=== PATIENT | female | born 1975 | race Caucasian/White ===

== ENCOUNTER 2018-11-10 09:56 | Inpatient (IN) | payer MEDICARE, MEDICAID ==
[~2018-11-10] VITALS: Ht 175.3 cm; Wt 67.9 kg
--- NOTE | 2018-11-10 10:13 | NUR ---
THIS IS A 43 YO FEMALE WHO PRESENTS TO THE ER VIA AMBULANCE TRANSFER FROM [facility] C/O N/V/D WITH ETOH DETOX. PT REPORTS LAST DRINK WAS LAST NIGHT. PT CURRENTLY AO X 4. SKIN SLIGHTLY COOL TO TOUCH, DRY AND PINK. PT HAS SLIGHT TREMORS NOTED IN HANDS. PT NST ON FINISH PATCHER. RESP EVEN AND UNLABORED. PT REQUESTED WATER/ICE CHIPS. OKAY WITH CHANELL ESPOSITO TO PROVIDE PT WITH ICE CHIPS. PT CURRENTLY DENIES PAIN. PT ON CONT BP, CARDIAC AND O2 MONITORS. WILL CONT TO MONITOR PT.
[2018-11-10] MEDS ORDERED: FLUT9.9S NAS (10:20)
[2018-11-10] MEDS ORDERED: SUCR1TAB PO (10:20)
[2018-11-10] MEDS ORDERED: FLUT1DIS3 INH (10:20)
[2018-11-10] MEDS ORDERED: FLUO40CA2 PO (10:20)
[2018-11-10] MEDS ORDERED: MIRT15TA4 PO (10:20)
[2018-11-10] MEDS ORDERED: ALBU18HF INH (10:20)
[2018-11-10] MEDS ORDERED: MAGN400T7 PO (10:20)
[2018-11-10] MEDS ORDERED: THIAMINE 100MG TABLET ONE (10:25)
[2018-11-10] MEDS ORDERED: LORazepam 2 MG/ML, 1ML ONE ×2 (10:25→13:36)
[2018-11-10] MEDS ORDERED: SODIUM CHLORIDE 0.9% 1,000ML IVBOLUS ONE ×3 (10:30→12:00)
[2018-11-10] MEDS ORDERED: THIAMINE 100MG TABLET PO ONE (10:30)
[2018-11-10] MEDS ORDERED: SODIUM CHLORIDE FLUSH 10ML SYR IVF ONE (10:30)
[2018-11-10] MEDS ORDERED: PLEASE ENTER ALLERGIES MC SCH (10:30)
[2018-11-10] MEDS: LORazepam 2 MG/ML, 1ML IVPush PRN ×3 (10:34→13:40)
[2018-11-10 10:51] LABS: MEAN CORPUSCULAR HGB CONC 31.9 g/dL (32.4-35.8); MEAN CORPUSCULAR VOLUME 81.5 fL (80-100); MEAN PLATELET VOLUME 7.8 fL (7.4-10.4); PLATELET COUNT 323 x10^3/uL (130-400); RED BLOOD COUNT 4.26 x10^6/uL (3.82-5.3); RED CELL DISTRIBUTION WIDTH 22.8 % (9.6-15.2)
[2018-11-10 10:58] LABS: ALANINE AMINOTRANSFERASE 63 U/L (12-78); ALBUMIN 3.4 g/dL (3.4-5.0); ANION GAP 14 mmol/L (5-15); CALCIUM 7.1 mg/dL (8.5-10.1); CHLORIDE 107 mmol/L (98-107); CREATININE 1.02 mg/dL (0.55-1.02)
[2018-11-10 11:00] LABS: ALKALINE PHOSPHATASE 95 U/L (45-117); BILIRUBIN,TOTAL 0.7 mg/dL (0.2-1.0); TOTAL PROTEIN 6.8 g/dL (6.4-8.2)
[2018-11-10 11:03] LABS: INTERNATIONAL NORMALIZED RATIO 0.99 (0.93-1.1); PROTHROMBIN TIME 10.4 Seconds (9.6-11.5)
[2018-11-10 11:04] LABS: BAND#(MANUAL) 1.47 x10^3/uL; BANDS%(MANUAL) 9 % (0-7); LYMPH#(MANUAL) 0.65 x10^3/uL (1-3.4); LYMPHS% (MANUAL) 4 % (22-44); MD YES; MONOS#(MANUAL) 0.33 x10^3/uL (0.3-2.7); MONOS% (MANUAL) 2 % (2-9); SEG#(MANUAL) 13.86 x10^3/uL (1.8-6.8); SEGS% (MANUAL) 85 % (42-75)
[2018-11-10 11:05] LABS: ANISOCYTOSIS 1+
[2018-11-10 11:06] LABS: <PLATELET ESTIMATE> ADEQUATE; <PLT MORPHOLOGY> NORMAL PLT MORPH; HYPOCHROMIA 1+; MICROCYTOSIS 1+; OVALOCYTES 1+; POLYCHROMASIA 1+
--- NOTE | 2018-11-10 11:50 | NUR ---
PT CURRENTLY RESTING ON GURNEY, DROWSY. NAD NOTED. PT STATES "I FEEL RESTFUL RIGHT NOW, I DIDN'T SLEEP ALL NIGHT". SKIN PWD. RESP EVEN AND UNLABORED. NO HALLUCINATIONS NOTED BY RN OR REPORTED BY PT. PT AWARE THAT WE ARE WAITING FOR ADMISSION. PT MEETS SEPSIS CRITERIA, PT HAS ALREADY RECIEVED CEFTRIAXONE 1 GRAM AT [facility] ALONG WITH 1 LITER OF FLUID. PT ON CONT BP, CARDIAC AND O2 MONITORS. 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 CALL LIGHT WITHIN REACH. WILL CONT TO MONITOR PT.
--- NOTE | 2018-11-10 12:19 | NUR ---
PT CURRENTLY RESTING ON GURMeliuz. NAD NOTED. PT DROWSY, AWAKENS TO NAME BEING CALLED. PT AO X 4. SKIN PWD. RESP EVEN AND UNLABORED. NO TREMORS NOTED AT THIS TIME. PT DENIES HALLUCINATIONS AND NONE NOTED BY RN. PT ON CONT BP, CARDIAC AND O2 MONITORS. CALL LIGHT WITHIN REACH. WILL CONT TO MONITOR PT.
[2018-11-10] MEDS ORDERED: LABETALOL 5MG/ML, 20ML IVPush PRN (12:30)
[2018-11-10] MEDS ORDERED: LORazepam 1MG TABLET PO PRN ×3 (12:30)
[2018-11-10] MEDS ORDERED: LORazepam 2 MG/ML, 1ML IV PRN ×4 (12:30)
[2018-11-10 12:59] LABS: FREE T4 (FREE THYROXINE) 0.71 ng/dL (0.76-1.46)
[2018-11-10] MEDS ORDERED: CHLORDIAZEPOXIDE 25 MG CAPSULE ONE (13:12)
[2018-11-10] MEDS: CHLORDIAZEPOXIDE 25 MG CAPSULE PO SCH ×3 (13:24→22:17)
--- NOTE | 2018-11-10 13:40 | NUR ---
PT UP TO RESTROOM. STEADY UPON AMBULATION. PT AO X 4. SKIN FLUSHED, WARM AND VERY SLIGHTLY DIAPHORETIC. PT APPEARS MILDLY ANXIOUS AND REQUESTING MEDICATION FOR DETOX. PT MEDICATED ORDERED. PT AWARE WE ARE WAITING FOR ADMISSION. PT DENIES PAIN/NEEDS AT THIS TIME. PT ON CONT BP, CARDIAC AND O2 MONITORS. NST 100'S NOTED. CALL LIGHT WITHIN REACH. WILL CONT TO MONITOR PT.
--- NOTE | 2018-11-10 14:00 | NUR ---
REPORT TO KYLEE HUNTER ON MED/TELE.
[2018-11-10] MEDS: AZTREONAM 2 GM in DEXTROSE 5% 100 ML IV SCH ×2 (14:23→21:19)
[2018-11-10] MEDS: POTASSIUM CHLORIDE 20 MEQ, MAGNESIUM SULFATE 1 GM, FOLIC ACID 1 MG, THIAMINE 200 MG, MV... IV SCH (14:23)
--- NOTE | 2018-11-10 14:33 | NUR ---
PT DOZING ON GURNEY. NAD NOTED. PT AWAKENS EASILY TO NAME BEING CALLED. AO X 4. SKIN PWD. RESP EVEN AND UNLABORED. PT ON CONT BP, CARDIAC AND O2 MONITORS. PT AWARE WE ARE WAITING FOR TRANSPORT UPSTAIRS.
[2018-11-10 15:30] VITALS: BP 132/85
[2018-11-10] MEDS ORDERED: MAGNESIUM SULFATE PMX 2GM/50ML 50 ML IV ONE (16:00)
[2018-11-10] MEDS: NEUTRA PHOS K 250 MG TABLET PO SCH ×2 (17:12→20:22)
[2018-11-10 19:01] LABS: MICROSCOPIC AUTO
[2018-11-10 19:18] LABS: CULTURE INDICATED? YES
[2018-11-10 20:06] VITALS: BP 128/78
[2018-11-10] MEDS: SUCRALFATE 1 GM TABLET PO SCH (20:22)
[2018-11-10] MEDS: LORazepam 1MG TABLET PO PRN (20:23)
[2018-11-10] MEDS: BUDESONIDE 0.5 MG/2 ML INHA NPPB SCH (20:33)
[2018-11-10] MEDS: ALBUTEROL SULFATE 2.5 MG/3 ML NPPB SCH (20:33)
[2018-11-10] MEDS ORDERED: TEMPLATE NON-FORMULARY MED. (Fluticasone/Salmeterol** (Advair 250-50 Diskus**) 1 PUFF) INH SCH (21:00)
[2018-11-10] MEDS: FLUTICASONE NASAL SPRAY 16GM NAS SCH (21:18)
[2018-11-11] MEDS: LORazepam 1MG TABLET PO PRN ×3 (00:42→19:34)
[2018-11-11 01:01] VITALS: BP 144/91
[2018-11-11] MEDS: ALBUTEROL SULFATE 2.5 MG/3 ML NPPB SCH ×4 (03:20→20:04)
[2018-11-11] MEDS: LORazepam 2 MG/ML, 1ML IV PRN ×2 (03:48→10:49)
[2018-11-11 04:55] LABS: MEAN CORPUSCULAR HEMOGLOBIN 25.9 pg (27.0-34.8); MEAN CORPUSCULAR HGB CONC 31.6 g/dL (32.4-35.8); MEAN PLATELET VOLUME 7.4 fL (7.4-10.4); PLATELET COUNT 230 x10^3/uL (130-400); RED BLOOD COUNT 4.01 x10^6/uL (3.82-5.3); RED CELL DISTRIBUTION WIDTH 22.8 % (9.6-15.2)
[2018-11-11 05:07] LABS: ALBUMIN 2.9 g/dL (3.4-5.0); ANION GAP 11 mmol/L (5-15); CALCIUM 6.8 mg/dL (8.5-10.1); CHLORIDE 105 mmol/L (98-107)
[2018-11-11 05:18] LABS: ALANINE AMINOTRANSFERASE 48 U/L (12-78); ALKALINE PHOSPHATASE 103 U/L (45-117); BILIRUBIN,TOTAL 0.7 mg/dL (0.2-1.0); CREATININE 0.81 mg/dL (0.55-1.02)
[2018-11-11] MEDS: AZTREONAM 2 GM in DEXTROSE 5% 100 ML IV SCH ×2 (05:20→13:57)
[2018-11-11 05:43] LABS: BASOPHILS # (AUTO) 0.02 x10^3/uL (0-0.1); BASOPHILS % (AUTO) 0 % (0-1); EOSINOPHILS # (AUTO) 0.25 x10^3/uL (0-0.4); EOSINOPHILS % (AUTO) 3 % (1-7); LYMPHOCYTES % (AUTO) 25 % (22-44); MD SCAN; MONOCYTES # (AUTO) 0.35 x10^3/uL (0.2-0.8); MONOCYTES % (AUTO) 4 % (2-9); NEUTROPHILS # (AUTO) 5.44 x10^3/uL (1.8-6.8); NEUTROPHILS % (AUTO) 68 % (42-75)
[2018-11-11] MEDS ORDERED: POTASSIUM CHLORIDE 40 MEQ in SODIUM CHLORIDE 0.9% 100 ML IV ONE (06:00)
[2018-11-11] MEDS ORDERED: POTASSIUM CHLORIDE 20 MEQ TAB.ER.PRT PO ONE ×3 (06:00→11:30)
[2018-11-11 07:30] VITALS: BP 99/66
[2018-11-11] MEDS ORDERED: SODIUM PHOSPHATE 4 MEQ/ML IV SCH (07:30)
[2018-11-11] MEDS: FLUOXETINE HCL 20 MG CAPSULE PO SCH (08:00)
[2018-11-11] MEDS: NEUTRA PHOS K 250 MG TABLET PO SCH (08:00)
[2018-11-11] MEDS: CHLORDIAZEPOXIDE 25 MG CAPSULE PO SCH ×3 (08:00→20:34)
[2018-11-11] MEDS ORDERED: SODIUM PHOSPHATE 30 MMOL in SODIUM CHLORIDE 0.9% 500 ML IV ONE (08:00)
[2018-11-11] MEDS: SUCRALFATE 1 GM TABLET PO SCH ×4 (08:00→20:34)
[2018-11-11] MEDS ORDERED: SODIUM CHLORIDE NASAL SPRAY 45ML BOTTLE NAS PRN (08:30)
[2018-11-11] MEDS ORDERED: ALBUTEROL SULFATE 2.5 MG/3 ML NPPB PRN (09:00)
[2018-11-11] MEDS: BUDESONIDE 0.5 MG/2 ML INHA NPPB SCH ×2 (09:20→20:04)
[2018-11-11] MEDS: NICOTINE 7 MG/24 HR PATCH.TD24 TD SCH (10:48)
[2018-11-11] MEDS: SODIUM CHLORIDE 0.45% 1,000 ML IV SCH ×2 (10:49→19:15)
[2018-11-11 12:39] LABS: CHLORIDE 109 mmol/L (98-107)
[2018-11-11 12:51] LABS: ANION GAP 6 mmol/L (5-15); CALCIUM 7.2 mg/dL (8.5-10.1); CREATININE 0.59 mg/dL (0.55-1.02)
[2018-11-11 13:42] VITALS: BP 115/57
[2018-11-11] MEDS: POTASSIUM CHLORIDE 20 MEQ, MAGNESIUM SULFATE 1 GM, FOLIC ACID 1 MG, THIAMINE 200 MG, MV... IV SCH (14:15)
[2018-11-11 16:09] LABS: ANION GAP 8 mmol/L (5-15); CALCIUM 6.8 mg/dL (8.5-10.1); CHLORIDE 111 mmol/L (98-107); CREATININE 0.57 mg/dL (0.55-1.02)
[2018-11-11 16:11] LABS: CLOSTRIDIUM DIFFICILE ANTIGEN POSITIVE; CLOSTRIDIUM DIFFICILE TOXIN NEGATIVE (Negative)
[2018-11-11] MEDS: VANCOMYCIN 50 MG/ML ORAL SUSP PO SCH (17:45)
[2018-11-11 19:41] VITALS: BP 113/76
[2018-11-11] MEDS: FLUTICASONE NASAL SPRAY 16GM NAS SCH (20:35)
[2018-11-12] MEDS: VANCOMYCIN 50 MG/ML ORAL SUSP PO SCH ×3 (00:03→10:59)
[2018-11-12] MEDS: LORazepam 1MG TABLET PO PRN ×2 (00:04→18:44)
[2018-11-12] MEDS: AZTREONAM 2 GM in DEXTROSE 5% 100 ML IV SCH ×3 (00:39→16:01)
[2018-11-12] MEDS: ALBUTEROL SULFATE 2.5 MG/3 ML NPPB SCH ×3 (01:32→21:00)
[2018-11-12 01:51] VITALS: BP 132/78
[2018-11-12 05:37] LABS: MEAN CORPUSCULAR HGB CONC 31.4 g/dL (32.4-35.8); MEAN CORPUSCULAR VOLUME 82.7 fL (80-100); MEAN PLATELET VOLUME 7.7 fL (7.4-10.4); PLATELET COUNT 171 x10^3/uL (130-400); RED BLOOD COUNT 3.69 x10^6/uL (3.82-5.3); RED CELL DISTRIBUTION WIDTH 22.6 % (9.6-15.2)
[2018-11-12 05:40] LABS: ALBUMIN 2.5 g/dL (3.4-5.0); ANION GAP 7 mmol/L (5-15); CHLORIDE 112 mmol/L (98-107)
[2018-11-12 05:44] LABS: ALANINE AMINOTRANSFERASE 36 U/L (12-78); ALKALINE PHOSPHATASE 79 U/L (45-117); BILIRUBIN,TOTAL 0.3 mg/dL (0.2-1.0); CREATININE 0.52 mg/dL (0.55-1.02); TOTAL PROTEIN 5.4 g/dL (6.4-8.2)
[2018-11-12 05:56] LABS: MD YES
[2018-11-12 05:58] LABS: EOS#(MANUAL) 0.89 x10^3/uL (0.0-0.4); EOS% (MANUAL) 15 % (1-7); LYMPH#(MANUAL) 1.83 x10^3/uL (1-3.4); LYMPHS% (MANUAL) 31 % (22-44); MONOS#(MANUAL) 0.06 x10^3/uL (0.3-2.7); MONOS% (MANUAL) 1 % (2-9); SEG#(MANUAL) 3.13 x10^3/uL (1.8-6.8); SEGS% (MANUAL) 53 % (42-75)
[2018-11-12 05:59] LABS: ANISOCYTOSIS 1+; HYPOCHROMIA 1+; MICROCYTOSIS 1+; OVALOCYTES 1+
[2018-11-12 06:00] LABS: <PLATELET ESTIMATE> ADEQUATE; LARGE PLATELETS 1+; TEAR DROPS 1+
[2018-11-12 06:30] VITALS: BP 131/86
[2018-11-12] MEDS: BUDESONIDE 0.5 MG/2 ML INHA NPPB SCH ×2 (09:00→22:45)
[2018-11-12] MEDS: NICOTINE 7 MG/24 HR PATCH.TD24 TD SCH (09:39)
[2018-11-12] MEDS: CHLORDIAZEPOXIDE 25 MG CAPSULE PO SCH ×2 (09:39→20:10)
[2018-11-12] MEDS: FLUOXETINE HCL 20 MG CAPSULE PO SCH (09:39)
[2018-11-12] MEDS: SUCRALFATE 1 GM TABLET PO SCH ×4 (09:39→20:18)
[2018-11-12 12:54] VITALS: BP 116/68
[2018-11-12] MEDS: POTASSIUM CHLORIDE 20 MEQ, MAGNESIUM SULFATE 1 GM, FOLIC ACID 1 MG, THIAMINE 200 MG, MV... IV SCH (14:37)
[2018-11-12] MEDS: LORazepam 0.5MG TABLET PO PRN (16:01)
[2018-11-12] MEDS: LOPERAMIDE 1 MG/5 ML, 10ML UDC PO PRN (18:44)
[2018-11-12 19:38] VITALS: BP 120/80
[2018-11-12] MEDS: FLUTICASONE NASAL SPRAY 16GM NAS SCH (20:11)
[2018-11-13] MEDS: AZTREONAM 2 GM in DEXTROSE 5% 100 ML IV SCH ×3 (00:04→16:37)
[2018-11-13] MEDS: LORazepam 1MG TABLET PO PRN ×3 (00:11→18:56)
[2018-11-13 01:06] VITALS: BP 126/82
[2018-11-13 06:50] LABS: MEAN CORPUSCULAR HEMOGLOBIN 25.2 pg (27.0-34.8); MEAN CORPUSCULAR HGB CONC 30.8 g/dL (32.4-35.8); MEAN CORPUSCULAR VOLUME 81.9 fL (80-100); MEAN PLATELET VOLUME 7.4 fL (7.4-10.4); PLATELET COUNT 184 x10^3/uL (130-400); RED BLOOD COUNT 3.96 x10^6/uL (3.82-5.3); RED CELL DISTRIBUTION WIDTH 22.4 % (9.6-15.2)
[2018-11-13 07:00] LABS: ALBUMIN 2.8 g/dL (3.4-5.0); ANION GAP 9 mmol/L (5-15); CHLORIDE 108 mmol/L (98-107)
[2018-11-13 07:17] LABS: BASOPHILS # (AUTO) 0.03 x10^3/uL (0-0.1); BASOPHILS % (AUTO) 1 % (0-1); EOSINOPHILS # (AUTO) 0.58 x10^3/uL (0-0.4); EOSINOPHILS % (AUTO) 9 % (1-7); LYMPHOCYTES % (AUTO) 31 % (22-44); MD SCAN; MONOCYTES # (AUTO) 0.43 x10^3/uL (0.2-0.8); MONOCYTES % (AUTO) 6 % (2-9); NEUTROPHILS # (AUTO) 3.56 x10^3/uL (1.8-6.8); NEUTROPHILS % (AUTO) 53 % (42-75)
[2018-11-13 07:25] LABS: % IRON SATURATION 10 % (20-55); ALANINE AMINOTRANSFERASE 38 U/L (12-78); ALKALINE PHOSPHATASE 92 U/L (45-117); BILIRUBIN,TOTAL 0.3 mg/dL (0.2-1.0); CREATININE 0.53 mg/dL (0.55-1.02); IRON LEVEL 26 mcg/dL (50-170); TOTAL IRON BINDING CAPACITY 257 mcg/dL (250-450)
[2018-11-13 07:41] VITALS: BP 145/75
[2018-11-13] MEDS: SUCRALFATE 1 GM TABLET PO SCH ×4 (07:43→20:03)
[2018-11-13] MEDS: CHLORDIAZEPOXIDE 25 MG CAPSULE PO SCH ×2 (07:43→20:02)
[2018-11-13] MEDS: FLUOXETINE HCL 20 MG CAPSULE PO SCH (07:43)
[2018-11-13] MEDS: LOPERAMIDE 1 MG/5 ML, 10ML UDC PO PRN (08:38)
[2018-11-13] MEDS: ALBUTEROL SULFATE 2.5 MG/3 ML NPPB SCH ×2 (09:00→21:07)
[2018-11-13] MEDS ORDERED: POTASSIUM CHLORIDE 20 MEQ TAB.ER.PRT PO ONE (09:30)
[2018-11-13] MEDS ORDERED: MAGNESIUM SULFATE PMX 2GM/50ML 50 ML IV ONE (09:30)
[2018-11-13] MEDS ORDERED: POTASSIUM CHLORIDE 20 MEQ TAB.ER.PRT ONE (09:50)
[2018-11-13] MEDS ORDERED: MAGNESIUM SULFATE PMX 2GM/50ML 50 ML ONE (09:51)
[2018-11-13] MEDS: NICOTINE 7 MG/24 HR PATCH.TD24 TD SCH (09:55)
[2018-11-13] MEDS: BUDESONIDE 0.5 MG/2 ML INHA NPPB SCH ×2 (11:53→21:07)
[2018-11-13 13:31] VITALS: BP 138/81
[2018-11-13] MEDS: POTASSIUM CHLORIDE 20 MEQ, MAGNESIUM SULFATE 1 GM, FOLIC ACID 1 MG, THIAMINE 200 MG, MV... IV SCH (14:45)
[2018-11-13] MEDS: FLUTICASONE NASAL SPRAY 16GM NAS SCH (20:01)
[2018-11-13 21:55] VITALS: BP 116/80
[2018-11-14] MEDS: AZTREONAM 2 GM in DEXTROSE 5% 100 ML IV SCH ×2 (00:06→08:23)
[2018-11-14] MEDS: LORazepam 1MG TABLET PO PRN ×2 (01:24→21:37)
[2018-11-14 02:30] VITALS: BP 121/83
[2018-11-14] MEDS: LOPERAMIDE 1 MG/5 ML, 10ML UDC PO PRN ×4 (04:45→21:38)
[2018-11-14 05:24] LABS: MEAN CORPUSCULAR HEMOGLOBIN 25.6 pg (27.0-34.8); MEAN CORPUSCULAR HGB CONC 30.9 g/dL (32.4-35.8); MEAN CORPUSCULAR VOLUME 82.7 fL (80-100); MEAN PLATELET VOLUME 7.9 fL (7.4-10.4); PLATELET COUNT 200 x10^3/uL (130-400); RED BLOOD COUNT 4.27 x10^6/uL (3.82-5.3); RED CELL DISTRIBUTION WIDTH 23.6 % (9.6-15.2)
[2018-11-14 05:29] LABS: ALBUMIN 3.3 g/dL (3.4-5.0); ANION GAP 9 mmol/L (5-15); CALCIUM 8.9 mg/dL (8.5-10.1); CHLORIDE 108 mmol/L (98-107)
[2018-11-14 05:33] LABS: ALANINE AMINOTRANSFERASE 37 U/L (12-78); ALKALINE PHOSPHATASE 100 U/L (45-117); BILIRUBIN,TOTAL 0.4 mg/dL (0.2-1.0); CREATININE 0.55 mg/dL (0.55-1.02); TOTAL PROTEIN 6.8 g/dL (6.4-8.2)
[2018-11-14 05:57] LABS: BASOPHILS # (AUTO) 0.05 x10^3/uL (0-0.1); BASOPHILS % (AUTO) 1 % (0-1); EOSINOPHILS # (AUTO) 0.59 x10^3/uL (0-0.4); EOSINOPHILS % (AUTO) 7 % (1-7); LYMPHOCYTES # (AUTO) 2.29 x10^3/uL (1-3.4); LYMPHOCYTES % (AUTO) 26 % (22-44); MD SCAN; MONOCYTES # (AUTO) 0.71 x10^3/uL (0.2-0.8); MONOCYTES % (AUTO) 8 % (2-9); NEUTROPHILS # (AUTO) 5.25 x10^3/uL (1.8-6.8); NEUTROPHILS % (AUTO) 59 % (42-75)
[2018-11-14] MEDS: SUCRALFATE 1 GM TABLET PO SCH ×4 (08:23→20:43)
[2018-11-14] MEDS: CHLORDIAZEPOXIDE 25 MG CAPSULE PO SCH ×2 (08:23→20:43)
[2018-11-14] MEDS: FLUOXETINE HCL 20 MG CAPSULE PO SCH (08:23)
[2018-11-14] MEDS: NICOTINE 7 MG/24 HR PATCH.TD24 TD SCH (08:23)
[2018-11-14 08:25] VITALS: BP 111/77
[2018-11-14] MEDS: BUDESONIDE 0.5 MG/2 ML INHA NPPB SCH ×2 (08:40→21:15)
[2018-11-14] MEDS: ALBUTEROL SULFATE 2.5 MG/3 ML NPPB SCH ×3 (08:40→21:15)
[2018-11-14] MEDS ORDERED: PINK BISMUTH 87.33 MG/5 ML ORAL SUSP PO PRN (11:30)
[2018-11-14] MEDS: CIPROFLOXACIN/PMX 400MG/200ML 200 ML IV SCH (13:01)
[2018-11-14 13:14] VITALS: BP 113/87
[2018-11-14] MEDS: POTASSIUM CHLORIDE 20 MEQ, MAGNESIUM SULFATE 1 GM, FOLIC ACID 1 MG, THIAMINE 200 MG, MV... IV SCH (13:47)
[2018-11-14 20:14] VITALS: BP 102/71
[2018-11-14] MEDS: FLUTICASONE NASAL SPRAY 16GM NAS SCH (20:44)
[2018-11-15] MEDS: CIPROFLOXACIN/PMX 400MG/200ML 200 ML IV SCH ×2 (01:01→14:23)
[2018-11-15 01:05] VITALS: BP 106/72
[2018-11-15] MEDS: ALBUTEROL SULFATE 2.5 MG/3 ML NPPB SCH ×4 (03:00→20:20)
[2018-11-15 06:26] LABS: MEAN CORPUSCULAR HEMOGLOBIN 26.2 pg (27.0-34.8); MEAN CORPUSCULAR HGB CONC 31.2 g/dL (32.4-35.8); MEAN PLATELET VOLUME 8.3 fL (7.4-10.4); PLATELET COUNT 189 x10^3/uL (130-400); RED BLOOD COUNT 4.38 x10^6/uL (3.82-5.3); RED CELL DISTRIBUTION WIDTH 23.4 % (9.6-15.2)
[2018-11-15 06:27] LABS: CHLORIDE 112 mmol/L (98-107)
[2018-11-15 06:39] LABS: ALANINE AMINOTRANSFERASE 35 U/L (12-78); ALBUMIN 3.2 g/dL (3.4-5.0); ALKALINE PHOSPHATASE 96 U/L (45-117); ANION GAP 8 mmol/L (5-15); BILIRUBIN,TOTAL 0.5 mg/dL (0.2-1.0); CALCIUM 8.7 mg/dL (8.5-10.1); CREATININE 0.68 mg/dL (0.55-1.02); TOTAL PROTEIN 6.6 g/dL (6.4-8.2)
[2018-11-15 07:05] LABS: BASOPHILS # (AUTO) 0.05 x10^3/uL (0-0.1); BASOPHILS % (AUTO) 1 % (0-1); EOSINOPHILS # (AUTO) 0.59 x10^3/uL (0-0.4); EOSINOPHILS % (AUTO) 6 % (1-7); LYMPHOCYTES # (AUTO) 2.43 x10^3/uL (1-3.4); LYMPHOCYTES % (AUTO) 26 % (22-44); MD SCAN; MONOCYTES # (AUTO) 1.02 x10^3/uL (0.2-0.8); MONOCYTES % (AUTO) 11 % (2-9); NEUTROPHILS # (AUTO) 5.44 x10^3/uL (1.8-6.8); NEUTROPHILS % (AUTO) 57 % (42-75)
[2018-11-15 07:15] VITALS: BP 101/70
[2018-11-15] MEDS: SUCRALFATE 1 GM TABLET PO SCH ×4 (07:52→20:13)
[2018-11-15] MEDS: BUDESONIDE 0.5 MG/2 ML INHA NPPB SCH ×2 (07:54→20:20)
[2018-11-15] MEDS: NICOTINE 7 MG/24 HR PATCH.TD24 TD SCH (09:00)
[2018-11-15] MEDS: ONDANSETRON ODT 4 MG PO PRN ×2 (09:56→14:22)
[2018-11-15] MEDS: FLUOXETINE HCL 20 MG CAPSULE PO SCH (10:39)
[2018-11-15] MEDS: CHLORDIAZEPOXIDE 25 MG CAPSULE PO SCH ×2 (10:39→20:11)
[2018-11-15] MEDS: LOPERAMIDE 1 MG/5 ML, 10ML UDC PO PRN (10:39)
[2018-11-15 13:50] VITALS: BP 108/71
[2018-11-15] MEDS: POTASSIUM CHLORIDE 20 MEQ, MAGNESIUM SULFATE 1 GM, FOLIC ACID 1 MG, THIAMINE 200 MG, MV... IV SCH (17:00)
[2018-11-15] MEDS ORDERED: HEPARIN 5,000 UNITS/ML, 1ML ONE (18:40)
[2018-11-15] MEDS: HEPARIN 5,000 UNITS/ML, 1ML SQ SCH (18:47)
[2018-11-15 19:32] LABS: CRYPTOSPORIDIUM ANTIGEN Negative (Negative)
[2018-11-15 19:59] VITALS: BP 111/75
[2018-11-15] MEDS: VANCOMYCIN 50 MG/ML ORAL SUSP PO SCH (20:11)
[2018-11-15] MEDS: FLUTICASONE NASAL SPRAY 16GM NAS SCH (20:12)
[2018-11-15] MEDS: LORazepam 0.5MG TABLET PO PRN (22:41)
[2018-11-16 02:33] VITALS: BP 104/69
[2018-11-16] MEDS: VANCOMYCIN 50 MG/ML ORAL SUSP PO SCH ×4 (02:40→20:45)
[2018-11-16] MEDS: HEPARIN 5,000 UNITS/ML, 1ML SQ SCH ×3 (02:40→18:42)
[2018-11-16] MEDS: ALBUTEROL SULFATE 2.5 MG/3 ML NPPB SCH ×4 (02:45→19:29)
[2018-11-16 06:35] LABS: ALANINE AMINOTRANSFERASE 35 U/L (12-78); ALBUMIN 2.2 g/dL (3.4-5.0); CALCIUM 6.9 mg/dL (8.5-10.1); CREATININE 0.45 mg/dL (0.55-1.02)
[2018-11-16 06:38] LABS: ALKALINE PHOSPHATASE 62 U/L (45-117); BILIRUBIN,TOTAL 0.2 mg/dL (0.2-1.0); TOTAL PROTEIN 4.7 g/dL (6.4-8.2)
[2018-11-16 06:47] LABS: BASOPHILS # (AUTO) 0.06 x10^3/uL (0-0.1); BASOPHILS % (AUTO) 1 % (0-1); EOSINOPHILS # (AUTO) 0.56 x10^3/uL (0-0.4); EOSINOPHILS % (AUTO) 7 % (1-7); LYMPHOCYTES # (AUTO) 1.98 x10^3/uL (1-3.4); LYMPHOCYTES % (AUTO) 24 % (22-44); MD SCAN; MEAN CORPUSCULAR HEMOGLOBIN 26.5 pg (27.0-34.8); MEAN CORPUSCULAR HGB CONC 31.7 g/dL (32.4-35.8); MEAN CORPUSCULAR VOLUME 83.6 fL (80-100); MEAN PLATELET VOLUME 8.3 fL (7.4-10.4); MONOCYTES # (AUTO) 0.86 x10^3/uL (0.2-0.8); MONOCYTES % (AUTO) 10 % (2-9); NEUTROPHILS # (AUTO) 4.95 x10^3/uL (1.8-6.8); NEUTROPHILS % (AUTO) 59 % (42-75); PLATELET COUNT 143 x10^3/uL (130-400); RED BLOOD COUNT 3.39 x10^6/uL (3.82-5.3); RED CELL DISTRIBUTION WIDTH 23.5 % (9.6-15.2)
[2018-11-16 07:04] LABS: ANION GAP 11 mmol/L (5-15)
[2018-11-16 07:08] VITALS: BP 108/74
[2018-11-16 07:11] LABS: CHLORIDE 120 mmol/L (98-107)
[2018-11-16] MEDS: SUCRALFATE 1 GM TABLET PO SCH ×4 (07:50→20:45)
[2018-11-16] MEDS: ONDANSETRON 2MG/ML, 2ML IVPush PRN ×2 (08:04→17:02)
[2018-11-16] MEDS: FLUOXETINE HCL 20 MG CAPSULE PO SCH (08:04)
[2018-11-16] MEDS: CHLORDIAZEPOXIDE 25 MG CAPSULE PO SCH (08:04)
[2018-11-16] MEDS: NICOTINE 7 MG/24 HR PATCH.TD24 TD SCH (08:05)
[2018-11-16] MEDS: BUDESONIDE 0.5 MG/2 ML INHA NPPB SCH ×2 (09:00→19:29)
[2018-11-16] MEDS: LOPERAMIDE 1 MG/5 ML, 10ML UDC PO PRN ×2 (10:26→22:33)
[2018-11-16 12:42] VITALS: BP 99/65
[2018-11-16] MEDS: ERYTHROMYCIN OPHTH 0.5%, 1GM EACHEYE SCH ×3 (13:53→22:33)
[2018-11-16] MEDS: FOLIC ACID 1 MG TABLET PO SCH (16:58)
[2018-11-16] MEDS: THIAMINE 100MG TABLET PO SCH (16:59)
[2018-11-16] MEDS: FLUTICASONE NASAL SPRAY 16GM NAS SCH (20:45)
[2018-11-16 20:50] VITALS: BP 91/63
[2018-11-17 01:39] VITALS: BP 102/68
[2018-11-17] MEDS: ALBUTEROL SULFATE 2.5 MG/3 ML NPPB SCH ×5 (01:58→15:45)
[2018-11-17] MEDS: HEPARIN 5,000 UNITS/ML, 1ML SQ SCH ×3 (03:09→18:07)
[2018-11-17] MEDS: VANCOMYCIN 50 MG/ML ORAL SUSP PO SCH ×2 (03:09→08:32)
[2018-11-17] MEDS: ERYTHROMYCIN OPHTH 0.5%, 1GM EACHEYE SCH ×7 (03:11→23:00)
[2018-11-17 06:44] LABS: ALBUMIN 3.2 g/dL (3.4-5.0); ANION GAP 7 mmol/L (5-15); CALCIUM 9.1 mg/dL (8.5-10.1); CHLORIDE 108 mmol/L (98-107)
[2018-11-17 06:47] LABS: ALANINE AMINOTRANSFERASE 41 U/L (12-78); ALKALINE PHOSPHATASE 73 U/L (45-117); BASOPHILS # (AUTO) 0.11 x10^3/uL (0-0.1); BASOPHILS % (AUTO) 1 % (0-1); BILIRUBIN,TOTAL 0.6 mg/dL (0.2-1.0); CREATININE 0.74 mg/dL (0.55-1.02); EOSINOPHILS # (AUTO) 0.68 x10^3/uL (0-0.4); EOSINOPHILS % (AUTO) 8 % (1-7); LYMPHOCYTES # (AUTO) 2.28 x10^3/uL (1-3.4); LYMPHOCYTES % (AUTO) 28 % (22-44); MD SCAN; MEAN CORPUSCULAR HEMOGLOBIN 26.6 pg (27.0-34.8); MEAN CORPUSCULAR HGB CONC 31.6 g/dL (32.4-35.8); MEAN CORPUSCULAR VOLUME 84.1 fL (80-100); MEAN PLATELET VOLUME 8.9 fL (7.4-10.4); MONOCYTES # (AUTO) 1.02 x10^3/uL (0.2-0.8); MONOCYTES % (AUTO) 13 % (2-9); NEUTROPHILS # (AUTO) 3.99 x10^3/uL (1.8-6.8); NEUTROPHILS % (AUTO) 49 % (42-75); PLATELET COUNT 148 x10^3/uL (130-400); RED BLOOD COUNT 3.81 x10^6/uL (3.82-5.3); RED CELL DISTRIBUTION WIDTH 23.9 % (9.6-15.2); TOTAL PROTEIN 6.4 g/dL (6.4-8.2)
[2018-11-17] MEDS: SUCRALFATE 1 GM TABLET PO SCH ×4 (07:22→20:12)
[2018-11-17 07:57] VITALS: BP 101/64
[2018-11-17] MEDS: FLUOXETINE HCL 20 MG CAPSULE PO SCH (08:32)
[2018-11-17] MEDS: NICOTINE 7 MG/24 HR PATCH.TD24 TD SCH (08:32)
[2018-11-17] MEDS: FOLIC ACID 1 MG TABLET PO SCH (08:32)
[2018-11-17] MEDS: ONDANSETRON 2MG/ML, 2ML IVPush PRN (08:32)
[2018-11-17] MEDS: THIAMINE 100MG TABLET PO SCH (08:32)
[2018-11-17] MEDS: NYSTATIN/TRIAMCINOLONE OINT 15GM TP SCH ×3 (09:00→20:11)
[2018-11-17] MEDS ORDERED: CHLORDIAZEPOXIDE 25 MG CAPSULE PO SCH (09:00)
[2018-11-17] MEDS: BUDESONIDE 0.5 MG/2 ML INHA NPPB SCH ×2 (09:00→21:00)
[2018-11-17] MEDS ORDERED: OMNIPAQUE 350 MG/ML, 100ML BOTTLE ONE (10:49)
[2018-11-17 14:18] VITALS: BP 104/66
[2018-11-17 19:17] VITALS: BP 100/66
[2018-11-17] MEDS: FLUTICASONE NASAL SPRAY 16GM NAS SCH (20:10)
[2018-11-18] MEDS: NYSTATIN/TRIAMCINOLONE OINT 15GM TP SCH (01:15)
[2018-11-18] MEDS: LOPERAMIDE 1 MG/5 ML, 10ML UDC PO PRN ×2 (01:22→11:01)
[2018-11-18] MEDS: HEPARIN 5,000 UNITS/ML, 1ML SQ SCH ×2 (01:22→10:30)
[2018-11-18 02:40] VITALS: BP 96/61
[2018-11-18] MEDS: ERYTHROMYCIN OPHTH 0.5%, 1GM EACHEYE SCH ×3 (03:00→11:00)
[2018-11-18] MEDS: ALBUTEROL SULFATE 2.5 MG/3 ML NPPB SCH ×3 (03:00→14:07)
[2018-11-18 06:47] VITALS: BP 95/60
[2018-11-18 07:19] LABS: MEAN CORPUSCULAR HEMOGLOBIN 25.5 pg (27.0-34.8); MEAN CORPUSCULAR HGB CONC 30.6 g/dL (32.4-35.8); MEAN CORPUSCULAR VOLUME 83.2 fL (80-100); MEAN PLATELET VOLUME 8.3 fL (7.4-10.4); PLATELET COUNT 208 x10^3/uL (130-400); RED BLOOD COUNT 4.16 x10^6/uL (3.82-5.3); RED CELL DISTRIBUTION WIDTH 22.7 % (9.6-15.2)
[2018-11-18 07:21] LABS: ALANINE AMINOTRANSFERASE 56 U/L (12-78); ALBUMIN 3.5 g/dL (3.4-5.0); ANION GAP 7 mmol/L (5-15); CALCIUM 9.8 mg/dL (8.5-10.1); CHLORIDE 106 mmol/L (98-107); CREATININE 0.83 mg/dL (0.55-1.02)
[2018-11-18 07:24] LABS: ALKALINE PHOSPHATASE 89 U/L (45-117); BILIRUBIN,TOTAL 0.2 mg/dL (0.2-1.0); TOTAL PROTEIN 7.3 g/dL (6.4-8.2)
[2018-11-18 07:28] LABS: BASOPHILS # (AUTO) 0.08 x10^3/uL (0-0.1); BASOPHILS % (AUTO) 1 % (0-1); EOSINOPHILS # (AUTO) 0.49 x10^3/uL (0-0.4); EOSINOPHILS % (AUTO) 7 % (1-7); LYMPHOCYTES # (AUTO) 1.52 x10^3/uL (1-3.4); LYMPHOCYTES % (AUTO) 21 % (22-44); MD SCAN; MONOCYTES # (AUTO) 0.86 x10^3/uL (0.2-0.8); MONOCYTES % (AUTO) 12 % (2-9); NEUTROPHILS # (AUTO) 4.15 x10^3/uL (1.8-6.8); NEUTROPHILS % (AUTO) 58 % (42-75)
[2018-11-18] MEDS: FLUOXETINE HCL 20 MG CAPSULE PO SCH (08:01)
[2018-11-18] MEDS: FOLIC ACID 1 MG TABLET PO SCH (08:01)
[2018-11-18] MEDS: SUCRALFATE 1 GM TABLET PO SCH ×2 (08:01→11:22)
[2018-11-18] MEDS: THIAMINE 100MG TABLET PO SCH (08:01)
[2018-11-18] MEDS: NICOTINE 7 MG/24 HR PATCH.TD24 TD SCH (08:06)
[2018-11-18] MEDS ORDERED: MAGNESIUM SULFATE PMX 2GM/50ML 50 ML IV ONE (08:30)
[2018-11-18] MEDS: BUDESONIDE 0.5 MG/2 ML INHA NPPB SCH (09:00)
[2018-11-18] MEDS ORDERED: FOLI-17 PO (09:23)
[2018-11-18] MEDS ORDERED: THIA100T67 PO (09:23)
[2018-11-18 12:15] VITALS: BP 102/63
== END 2018-11-18 14:54 | disposition home or self-care (01) | DRG 872 ==
LOC: ED 10:45 → 4WST 15:20
PROVIDERS: ADMIT Hospitalist; ATTEND Hospitalist
PROC: 02HV33Z Insertion of Infusion Device into Superior Vena Cava, Percutaneous Approach (ICD-10-PCS; principal; 2018-11-10)
DX: A41.9 Sepsis, unspecified organism (principal); F10.239 Alcohol dependence with withdrawal, unspecified; N10 Acute pyelonephritis; K29.20 Alcoholic gastritis without bleeding; E78.5 Hyperlipidemia, unspecified; Z87.11 Personal history of peptic ulcer disease; F31.9 Bipolar disorder, unspecified; F41.9 Anxiety disorder, unspecified; G47.00 Insomnia, unspecified; R56.9 Unspecified convulsions; D50.9 Iron deficiency anemia, unspecified; E83.39 Other disorders of phosphorus metabolism; E83.42 Hypomagnesemia; E87.6 Hypokalemia; F17.200 Nicotine dependence, unspecified, uncomplicated; G25.81 Restless legs syndrome; R65.20 Severe sepsis without septic shock; J44.9 Chronic obstructive pulmonary disease, unspecified; K27.9 Peptic ulcer, site unspecified, unspecified as acute or chronic, without hemorrhage or perforation; K57.10 Diverticulosis of small intestine without perforation or abscess without bleeding; N83.201 Unspecified ovarian cyst, right side; Z80.8 Family history of malignant neoplasm of other organs or systems; Z82.49 Family history of ischemic heart disease and other diseases of the circulatory system; Z83.3 Family history of diabetes mellitus; Z88.0 Allergy status to penicillin
CPT/HCPCS: 36415; 71045; 74177; 76770; 76830; 80048; 80053; 81001; 82607; 82728; 83540; 83550; 83605; 83690; 83735; 84100; 84145; 84439; 84443; 84702; 85025; 85610; 85730; 87040; 87086; 87324; 87328; 87329; 87493; 89055; 93005; 94640; 96361; 96374; G0378; J0744; J1644; J2405; J3370; J3411; J3475; J3480; J7613; J7626; Q0162; Q9967; J2060; J7030; J7040; J7121